=== PATIENT | female | born 2000 | race American Indian/Alaskan Native ===

== ENCOUNTER 2020-06-16 22:35 | Emergency (ER) | payer SELFPAY ==
[2020-06-17] MEDS ORDERED: FAMOTIDINE 20 MG TAB PO ONE (02:47)
[2020-06-17] MEDS ORDERED: dexAMETHasone 20 MG/5 ML VIAL IM ONE (02:48)
[2020-06-17] MEDS ORDERED: diphenhydrAMINE 50 MG/ML VIAL IM ONE (02:49)
[2020-06-17] MEDS ORDERED: IBUPROFEN 600 MG TAB PO ONE (02:55)
--- NOTE | 2020-06-17 02:55 | Emergency Department Report ---
ED ENT HPI - General Chief complaint: Earache Stated complaint: LF EAR PAIN Time Seen by Provider: 06/17/20 02:42 Source: patient Mode of arrival: Ambulatory Limitations: No Limitations - History of Present Illness Initial comments: 19-year-old female presents to the emergency room for left ear pain since last night. Patient states that she tried taking Tylenol as well as using eardrops without relief. Patient does admit to washing her hair a week ago. Patient also reports that she has possible allergic to Tylenol as she has taken 7 Tylenol tabs and now has a rash that appears to be hives. Patient reports that it itches but denies any abdominal pain. Patient denies any chest pain shortness of breathing nausea or vomiting. MD complaint: ear pain -: Last night Location: L ear Severity scale (0 -10): 8 Quality: burning, stabbing, aching, sharp Consistency: constant Improves with: none Worsens with: movement Associated Symptoms: hearing loss (Decreased hearing left ear). denies: fever, cough, gum swelling, toothache, pain with swallowing, sore throat - Related Data Previous Rx's Medication Instructions Recorded Last Taken Type Amoxicillin/Potassium Clav 1 each PO BID 10 Days #20 tablet 06/17/20 Unknown Rx [Augmentin 875-125 Tablet] Ibuprofen [Motrin 800 MG tab] 800 mg PO Q8HR PRN #21 tablet 06/17/20 Unknown Rx Neomy/Polymyx B/Hc Otic Susp 4 drops AD TID 10 Days #1 bottle 06/17/20 Unknown Rx [Cortisporin (Otic) Susp] Allergies Allergy/AdvReac Type Severity Reaction Status Date / Time No Known Allergies Allergy Unverified 06/16/20 23:10 ED Dental HPI - General Chief complaint: Earache Stated complaint: LF EAR PAIN Time Seen by Provider: 06/17/20 02:42 Source: patient Mode of arrival: Ambulatory Limitations: No Limitations - Related Data Previous Rx's Medication Instructions Recorded Last Taken Type Amoxicillin/Potassium Clav 1 each PO BID 10 Days #20 tablet 06/17/20 Unknown Rx [Augmentin 875-125 Tablet] Ibuprofen [Motrin 800 MG tab] 800 mg PO Q8HR PRN #21 tablet 06/17/20 Unknown Rx Neomy/Polymyx B/Hc Otic Susp 4 drops AD TID 10 Days #1 bottle 06/17/20 Unknown Rx [Cortisporin (Otic) Susp] Allergies Allergy/AdvReac Type Severity Reaction Status Date / Time No Known Allergies Allergy Unverified 06/16/20 23:10 ED Review of Systems ROS: Stated complaint: LF EAR PAIN Other details as noted in HPI Comment: All other systems reviewed and negative ED Past Medical Hx - Past Medical History Previous Medical History?: No - Surgical History Past Surgical History?: No - Social History Smoking Status: Never Smoker Substance Use Type: None - Medications Home Medications: Home Medications Medication Instructions Recorded Confirmed Last Taken Type Amoxicillin/Potassium Clav 1 each PO BID 10 Days #20 tablet 06/17/20 Unknown Rx [Augmentin 875-125 Tablet] Ibuprofen [Motrin 800 MG tab] 800 mg PO Q8HR PRN #21 tablet 06/17/20 Unknown Rx Neomy/Polymyx B/Hc Otic Susp 4 drops AD TID 10 Days #1 bottle 06/17/20 Unknown Rx [Cortisporin (Otic) Susp] ED Physical Exam - General Limitations: No Limitations General appearance: alert, in no apparent distress - Head Head exam: Present: atraumatic, normocephalic - Eye Eye exam: Present: normal appearance - ENT ENT exam: Present: mucous membranes moist - Expanded ENT Exam Expanded TM/Canal exam: Erythema: Left TM, Loss of Landmarks: Left TM, Canal Tenderness: Left TM (Tragus, pinna and auricle tenderness with movement) - Neck Neck exam: Present: full ROM - Extremities Exam Extremities exam: Present: normal inspection - Back Exam Back exam: Present: normal inspection, full ROM - Neurological Exam Neurological exam: Present: alert, oriented X3, normal gait - Psychiatric Psychiatric exam: Present: normal affect, normal mood - Skin Skin exam: Present: warm, dry, intact, normal color. Absent: rash ED Course Vital Signs 06/16/20 06/16/20 23:11 23:14 Temperature 98.0 F Pulse Rate 92 H Respiratory 20 Rate Blood Pressure 96/77 O2 Sat by Pulse 95 Oximetry ED Medical Decision Making - Medical Decision Making 19-year-old female presents to the emergency room for left ear pain since last night. Patient states that she tried taking Tylenol as well as using eardrops without relief. Patient does admit to washing her hair a week ago. Patient also reports that she has possible allergic to Tylenol as she has taken 7 Tylenol tabs and now has a rash that appears to be hives. Patient reports t hat it itches but denies any abdominal pain. Patient denies any chest pain shortness of breathing nausea or vomiting. Patient is given dexamethasone 10 mg IM, Benadryl 25 mg IM Pepcid 20 mg p.o. and ibuprofen 600 mg p.o. Patient will be discharged home on Augmentin 875 p.o. twice daily for 10 days and Cortisporin eardrops. Critical care attestation.: If time is entered above; I have spent that time in minutes in the direct care of this critically ill patient, excluding procedure time. ED Disposition Clinical Impression: Otitis externa, Otitis media, Urticaria Disposition: TO HOME OR SELFCARE Is pt being admited?: No Does the pt Need Aspirin: No Condition: Stable Instructions: Otitis Media (ED), Otitis Externa (ED), Urticaria (ED) Additional Instructions: Please take medications as prescribed. If symptoms persist or gets worse please follow-up with the ear nose and throat provider. Prescriptions: Amoxicillin/Potassium Clav [Augmentin 875-125 Tablet] 1 each PO BID 10 Days #20 tablet Neomy/Polymyx B/Hc Otic Susp [Cortisporin (Otic) Susp] 4 drops AD TID 10 Days #1 bottle Ibuprofen [Motrin 800 MG tab] 800 mg PO Q8HR PRN #21 tablet PRN Reason: Pain , Severe (7-10) Referrals: PRIMARY CARE, [Primary Care Provider] - 3-5 Days [facility] [Provider Group] - 3-5 Days Forms: Work/School Release Form(ED)
[2020-06-17 03:37] VITALS: BP 98/68
== END 2020-06-17 03:10 | disposition home or self-care (01) ==
LOC: ED 22:35
DX: H60.8X2 Other otitis externa, left ear (principal); H66.92 Otitis media, unspecified, left ear; L50.8 Other urticaria
CPT/HCPCS: 96372; 99282; J1100; J1200